=== PATIENT | female | born 1970 | race Caucasian/White ===

== ENCOUNTER 2018-05-21 13:49 | Emergency (ER) | payer MEDICAID ==
[2018-05-21 16:13] LABS: ADD MAN DIFF? NO
[2018-05-21 16:17] LABS: WHITE BLOOD COUNT 10.8 10^3/ul (4.8-10.8)
[2018-05-21 16:17] LABS: BASOPHIL # 0.1 10^3/ul (0.0-0.1); BASOPHILS % 0.6 % (0.0-2.0); EOSINOPHILS # 0.3 10^3/ul (0.0-0.5); HEMATOCRIT 33.7 % (37.0-47.0); HEMOGLOBIN 10.5 g/dl (12.0-16.0); IMMATURE GRANS #M 0.04 10^3/ul; IMMATURE GRANS % (M) 0.4 %; LYMPHOCYTES # 1.8 10^3/ul (0.8-2.9); LYMPHOCYTES % 16.3 % (15.0-51.0); MEAN CORPUSCULAR HGB CONC 31.2 g/dl (32.0-37.0); MEAN CORPUSCULAR VOLUME 73.7 fl (82.0-101.0); MEAN PLATELET VOLUME 12.1 fl (7.4-10.4); MONOCYTES % 9.1 % (0.0-11.0); NEUTROPHIL # 7.7 10^3/ul (1.6-7.5); NEUTROPHILS % 70.6 % (39.0-77.0); PLATELET COUNT 295 10^3/UL (140-415); RED BLOOD COUNT 4.57 10^6/ul (4.20-5.40)
[2018-05-21 16:35] LABS: ANION GAP 14 (8-16); BLOOD UREA NITROGEN 18 mg/dl (7-20); CALCIUM 8.9 mg/dl (8.4-10.2); CARBON DIOXIDE 22 mmol/L (21-31); CHLORIDE 107 mmol/L (97-110); CREATININE 0.54 mg/dl (0.44-1.00); GLUCOSE 161 mg/dl (70-220); POTASSIUM 4.4 mmol/L (3.5-5.1); SODIUM 139 mmol/L (135-144)
[2018-05-21 16:39] LABS: INR 1.07; PT RATIO 1.1
[2018-05-21 16:40] LABS: PARTIAL THROMBOPLASTIN TIME 31.4 Sec (25.0-35.0)
[2018-05-21 16:48] LABS: B-TYPE NATRIURETIC PEPTIDE 2430 PG/ML (0-125); TROPONIN-I < 0.010 ng/ml (0.000-0.120)
[2018-05-21] MEDS: FUROSEMIDE 40 MG INJ IV (17:22)
== END 2018-05-21 18:05 | disposition home or self-care (01) ==
LOC: E/R 13:49
DX: I50.9 Heart failure, unspecified (principal); J18.9 Pneumonia, unspecified organism; D64.9 Anemia, unspecified; E11.9 Type 2 diabetes mellitus without complications; Z79.4 Long term (current) use of insulin
CPT/HCPCS: 36415; 71045; 80048; 81025; 83880; 84484; 85025; 85610; 85730; 93005; 96374; 99285-25